=== PATIENT | female | born 1930 | race Caucasian/White ===

== ENCOUNTER 2019-09-18 13:09 | Inpatient (IN) ==
[2019-09-18] MEDS ORDERED: CeFAZolin Syr 2,000MG/20 ML 2,000 MG/20 ML SYRINGE IVPB ONE (13:43)
[2019-09-18] MEDS ORDERED: Albuterol 2.5 MG/3 ML NEBULIZER IH PRN ×2 (13:43→14:06)
[2019-09-18] MEDS ORDERED: Ringers Solution, Lactated 1,000 ML IVC SCH ×2 (13:45→18:25)
[2019-09-18] MEDS ORDERED: *HR* Propofol 200 MG/20 ML VIAL IVP ONE (14:01)
[2019-09-18] MEDS ORDERED: *HR* FentaNYL (PF) 100 MCG/2 ML VIAL ONE ×2 (14:01→16:20)
[2019-09-18] MEDS ORDERED: *HR* Succinylcholine 200 MG/10 ML VIAL IVP ONE (14:02)
[2019-09-18] MEDS ORDERED: Dexamethasone 4 MG/ML VIAL ONE (14:02)
[2019-09-18] MEDS ORDERED: Lidocaine -MPF 2% 2 ML VIAL ONE (14:02)
[2019-09-18] MEDS ORDERED: *HR* Rocuronium Bromide 50 MG/5 ML VIAL ONE (14:02)
[2019-09-18] MEDS ORDERED: Ondansetron 4 MG/2 ML VIAL ONE (14:02)
[2019-09-18] MEDS ORDERED: Acetaminophen IV 1,000 MG/100 ML INFUS..BTL IVPB ONE (14:06)
[2019-09-18] MEDS ORDERED: *HR* OxyCODONE Immed Rel 5 MG TABLET PO PRN ×2 (14:06→18:25)
[2019-09-18] MEDS ORDERED: Lidocaine HCL 4 ML Topical Solution (Laryng-O-Jet Kit Sterile Pak) TP ONE (14:06)
[2019-09-18] MEDS ORDERED: Ondansetron 4 MG/2 ML VIAL IVP ONE (14:06)
[2019-09-18] MEDS ORDERED: Famotidine 20 MG/2 ML VIAL IVP ONE (14:06)
[2019-09-18] MEDS ORDERED: *HR* HYDROmorphone (PF) 1 MG/ML SYRINGE IVP PRN (14:06)
[2019-09-18] MEDS ORDERED: *HR* Promethazine 25 MG/ML VIAL IVP PRN (14:06)
[2019-09-18] MEDS ORDERED: Ethanol\\Acetic Acid\\Na Ace\\Ben 1,000 ML IRRIG.SOLN IR ONE (14:07)
[2019-09-18] MEDS ORDERED: Ropivacaine/PF 0.5% 30 ML VIAL ONE (14:10)
[2019-09-18] MEDS ORDERED: Albumin Human 5% 25.0 GM/500 ML VIAL ONE (14:35)
[2019-09-18] MEDS ORDERED: *HR* Etomidate 40 MG/20 ML VIAL IVP ONE (14:47)
[2019-09-18] MEDS ORDERED: *HR* PHENYLEPHRINE 1,000 MCG/10 ML SYRINGE IVP ONE (16:00)
[2019-09-18] MEDS ORDERED: *HR* Enoxaparin 30 MG/0.3 ML SYRINGE SQ SCH (18:00)
[2019-09-18] MEDS ORDERED: Sennosides 8.6 MG TABLET PO PRN (18:25)
[2019-09-18] MEDS ORDERED: MOM Conc 10 ML UD.LIQ PO PRN (18:25)
[2019-09-18] MEDS ORDERED: Naloxone 0.4 MG/ML INJ IVP PRN (18:25)
[2019-09-18] MEDS ORDERED: Ondansetron 4 MG/2 ML VIAL IVP PRN (18:25)
[2019-09-18] MEDS ORDERED: *HR* OxyCODONE/APAP 5/325 TABLET PO PRN (18:25)
[2019-09-18 20:44] LABS: Hematocrit 37.5 % (35.3-44.9); Hemoglobin 12.5 g/dL (11.5-15.4)
[2019-09-18] MEDS ORDERED: FOLIC ACID PO SCH (21:00)
[2019-09-18] MEDS ORDERED: BIOTIN PO SCH (21:00)
[2019-09-18] MEDS ORDERED: MULTIVITAMIN PO SCH (21:00)
[2019-09-18] MEDS ORDERED: [UNRECOGNIZED DRUG - OTHER] PO SCH (21:00)
[2019-09-18] MEDS: ceFAZolin 2,000 MG in 0.9 % Sodium Chloride 100 ML IVPB SCH (23:06)
[2019-09-19] MEDS ORDERED: *HR* Enoxaparin 30 MG/0.3 ML SYRINGE SQ SCH (06:00)
[2019-09-19] MEDS: ceFAZolin 2,000 MG in 0.9 % Sodium Chloride 100 ML IVPB SCH (06:23)
[2019-09-19] MEDS ORDERED: Cyanocobalamin (B-12) 1,000 MCG TABLET PO SCH (09:00)
[2019-09-19] MEDS ORDERED: Multivit/Ca/Min/Fe/FA 1 TAB TABLET PO SCH (09:00)
[2019-09-19 11:10] VITALS: BP 189/83
[2019-09-19 11:23] LABS: Hematocrit 35.4 % (35.3-44.9); Hemoglobin 11.2 g/dL (11.5-15.4)
[2019-09-19 11:43] LABS: BUN/Creatinine Ratio 19 (6-26); Blood Urea Nitrogen 18 mg/dL (8-23); Carbon Dioxide 25 mEq/L (23-29); Chloride 103 mEq/L (98-107); Glucose 167 mg/dL (70-105); Osmolality,Calculated 286 (280-300); Potassium 4.2 mEq/L (3.5-5.1); Sodium 135 mEq/L (136-145); eGFR For African Americans > 60 (> 60); eGFR For Non-African Americans 57 (> 60)
== END 2019-09-19 16:05 | disposition home health service (06) | DRG 483 ==
LOC: SAMDAY 13:09 → 3NENU 13:09 → SAMDAY 09-19 16:05 → 3NENU 09-28 10:20
PROVIDERS: ADMIT Orthopaedic Surgery; ATTEND Orthopaedic Surgery

== ENCOUNTER 2021-03-02 16:28 | Inpatient (IN) ==
[2021-03-02] MEDS ORDERED: Isovue-370 500 ML BOTTLE IVP ONE (17:29)
[2021-03-02] MEDS ORDERED: 0.9 % Sodium Chloride 1,000 ML IVC ONE (17:29)
[2021-03-02] MEDS ORDERED: Orphenadrine 60 MG/2 ML VIAL IM ONE (17:30)
[2021-03-02] MEDS ORDERED: *HR* Labetalol 20 MG/4 ML SYRINGE IVP ONE ×2 (17:32→20:02)
[2021-03-02 18:07] LABS: Basophils % 0.1 %; Hematocrit 39.4 % (35.3-44.9); Hemoglobin 12.6 g/dL (11.5-15.4); Immature Granulocytes % 0.5 % (0-4); Lymphocytes % 12.4 %; Mean Corpuscular Hemoglobin 28.7 pg (28.0-33.3); Mean Corpuscular Volume 89.7 fL (83.0-100.0); Mean Platelet Volume 10.3 fL (9.4-12.4); Monocytes # 0.6 K/mcL (0.0-1.3); Neutrophils # 6.7 K/mcL (1.6-8.9); Platelet Count 305 K/mcL (140-400); Red Blood Count 4.39 M/mcL (3.82-4.97); White Blood Count 8.4 K/mcL (4.3-11.1)
[2021-03-02 18:23] LABS: Alanine Aminotransferase 10 Units/L (7-52); Albumin 4.5 g/dL (3.5-5.7); Albumin/Globulin Ratio 1.7 (1.1-2.2); Alkaline Phosphatase 81 Units/L (34-104); Aspartate Amino Transferase 9 Units/L (13-39); BUN/Creatinine Ratio 24 (6-26); Bilirubin,Direct 0.1 mg/dL (0.0-0.2); Bilirubin,Indirect 0.3 mg/dL (0.0-1.0); Bilirubin,Total 0.4 mg/dL (0.3-1.0); Blood Urea Nitrogen 17 mg/dL (8-23); Calcium 9.4 mg/dL (8.6-10.3); Carbon Dioxide 27 mEq/L (23-29); Chloride 102 mEq/L (98-107); Globulin 2.6 g/dL (2.4-3.5); Glucose 123 mg/dL (70-105); Osmolality,Calculated 287 (280-300); Potassium 4.2 mEq/L (3.5-5.1); Sodium 137 mEq/L (136-145); Total Protein 7.1 g/dL (6.4-8.9); eGFR For African Americans > 60 (> 60); eGFR For Non-African Americans > 60 (> 60)
[2021-03-03] MEDS ORDERED: *HR* HYDROmorphone 2 MG/ML SYRINGE IVP ONE (00:40)
[2021-03-03] MEDS ORDERED: Naloxone 0.4 MG/ML INJ IVP PRN (01:41)
[2021-03-03] MEDS ORDERED: Ondansetron 4 MG/2 ML VIAL IVP PRN (01:41)
[2021-03-03] MEDS ORDERED: Perflutren Lipid Microsphere 1.3 ML in 0.9 % Sodium Chloride 8.7 ML IVP PRN (01:45)
[2021-03-03] MEDS: niCARdipine 20 MG/200 ML MLS IVC SCH ×6 (03:08→21:51)
[2021-03-03 05:58] LABS: Basophils % 0.2 %; Eosinophils % 0.1 %; Hematocrit 38.1 % (35.3-44.9); Hemoglobin 12.5 g/dL (11.5-15.4); Immature Granulocytes % 0.5 % (0-4); Lymphocytes # 1.7 K/mcL (0.6-4.6); Lymphocytes % 20.1 %; Mean Corpuscular HGB Conc 32.8 g/dL (31.6-35.5); Mean Corpuscular Hemoglobin 29.1 pg (28.0-33.3); Mean Corpuscular Volume 88.6 fL (83.0-100.0); Mean Platelet Volume 10.2 fL (9.4-12.4); Monocytes % 11.3 %; Neutrophils # 5.9 K/mcL (1.6-8.9); Platelet Count 285 K/mcL (140-400); Red Cell Distribution Width 15.2 % (11.5-14.5); Segmented Neutrophils % 67.8 %; White Blood Count 8.7 K/mcL (4.3-11.1)
[2021-03-03 06:04] LABS: INR 1.1; Prothrombin Time 13.1 Seconds (9.4-12.1)
[2021-03-03 06:19] LABS: BUN/Creatinine Ratio 21 (6-26); Blood Urea Nitrogen 15 mg/dL (8-23); Calcium 9.1 mg/dL (8.6-10.3); Carbon Dioxide 26 mEq/L (23-29); Chloride 102 mEq/L (98-107); Glucose 130 mg/dL (70-105); Magnesium 2.2 mg/dL (1.6-2.6); Osmolality,Calculated 293 (280-300); Potassium 3.2 mEq/L (3.5-5.1); Sodium 140 mEq/L (136-145); Troponin I < 0.03 ng/mL (< 0.04); eGFR For African Americans > 60 (> 60); eGFR For Non-African Americans > 60 (> 60)
[2021-03-03 06:32] LABS: Thyroid Stimulating Hormone 7.299 mcIU/mL (0.340-5.600)
[2021-03-03] MEDS: *HR* Enoxaparin 40 MG/0.4 ML SYRINGE SQ SCH (08:26)
[2021-03-03] MEDS: Acetaminophen 325 MG TABLET PO PRN ×2 (08:36→23:29)
[2021-03-03 08:44] LABS: Triiodothyronine (T3) Free 2.83 pg/mL (2.50-3.90)
[2021-03-03] MEDS: amLODIPine 5 MG TABLET PO SCH (10:57)
[2021-03-03 11:04] LABS: Bilirubin,Urine Negative (Negative); Blood,Urine Negative (Negative); Clarity,Urine Clear (Clear); Color,Urine Colorless (Yellow); Glucose,Urine (UA) Normal (Normal); Ketones,Urine Negative (Negative); Leukocyte Esterase,Urine Negative (Negative); Nitrite,Urine Negative (Negative); PH,Urine 6.5 pH Units (5.0-8.0); Protein,Urine Negative (Neg-Trace); Specific Gravity,Urine 1.017 (1.010-1.025); Urobilinogen,Urine Normal (Normal)
[2021-03-03] MEDS ORDERED: *HR* HYDROcodone/Acet 5/325 mg TABLET PO ONE (11:10)
[2021-03-03] MEDS ORDERED: Morphine Sulfate 2 MG/ML SYRINGE IVP ONE (14:36)
[2021-03-03] MEDS: Multivit/Ca/Min/Fe/FA 1 TAB TABLET PO SCH (20:52)
[2021-03-04] MEDS: niCARdipine 20 MG/200 ML MLS IVC SCH (03:10)
[2021-03-04] MEDS: Acetaminophen 325 MG TABLET PO PRN ×2 (05:43→16:27)
[2021-03-04 07:50] LABS: Basophils # 0.1 K/mcL (0.0-0.2); Basophils % 0.7 %; Eosinophils # 0.2 K/mcL (0.0-0.6); Eosinophils % 3.3 %; Hemoglobin 12.8 g/dL (11.5-15.4); Immature Granulocytes % 0.3 % (0-4); Lymphocytes # 1.3 K/mcL (0.6-4.6); Lymphocytes % 19.5 %; Mean Corpuscular HGB Conc 32.8 g/dL (31.6-35.5); Mean Corpuscular Volume 88.4 fL (83.0-100.0); Mean Platelet Volume 9.8 fL (9.4-12.4); Monocytes # 0.8 K/mcL (0.0-1.3); Monocytes % 11.4 %; Neutrophils # 4.5 K/mcL (1.6-8.9); Platelet Count 281 K/mcL (140-400); Red Blood Count 4.41 M/mcL (3.82-4.97); Segmented Neutrophils % 64.8 %; White Blood Count 6.9 K/mcL (4.3-11.1)
[2021-03-04 08:26] LABS: BUN/Creatinine Ratio 20 (6-26); Blood Urea Nitrogen 12 mg/dL (8-23); Calcium 9.4 mg/dL (8.6-10.3); Carbon Dioxide 25 mEq/L (23-29); Chloride 100 mEq/L (98-107); Glucose 123 mg/dL (70-105); Osmolality,Calculated 283 (280-300); Potassium 3.2 mEq/L (3.5-5.1); Sodium 136 mEq/L (136-145); eGFR For African Americans > 60 (> 60); eGFR For Non-African Americans > 60 (> 60)
[2021-03-04] MEDS: *HR* Enoxaparin 40 MG/0.4 ML SYRINGE SQ SCH (08:37)
[2021-03-04] MEDS: Multivit/Ca/Min/Fe/FA 1 TAB TABLET PO SCH (08:38)
[2021-03-04] MEDS: Cyanocobalamin (B-12) 1,000 MCG TABLET PO SCH (08:38)
[2021-03-04] MEDS: Cholecalciferol (D-3) 1,000 UNIT (25MCG) TABLET PO SCH (08:38)
[2021-03-04] MEDS: amLODIPine 5 MG TABLET PO SCH (08:39)
[2021-03-04] MEDS ORDERED: amLODIPine 5 MG TABLET PO STA (08:48)
[2021-03-05] MEDS: Acetaminophen 325 MG TABLET PO PRN (01:03)
[2021-03-05 01:42] LABS: BUN/Creatinine Ratio 22 (6-26); Blood Urea Nitrogen 15 mg/dL (8-23); Calcium 9.9 mg/dL (8.6-10.3); Carbon Dioxide 28 mEq/L (23-29); Chloride 100 mEq/L (98-107); Glucose 129 mg/dL (70-105); Osmolality,Calculated 285 (280-300); Potassium 4.2 mEq/L (3.5-5.1); Sodium 136 mEq/L (136-145); eGFR For African Americans > 60 (> 60); eGFR For Non-African Americans > 60 (> 60)
[2021-03-05 03:30] VITALS: O2SAT 94
[2021-03-05] MEDS: Multivit/Ca/Min/Fe/FA 1 TAB TABLET PO SCH (07:29)
[2021-03-05] MEDS: Cyanocobalamin (B-12) 1,000 MCG TABLET PO SCH (07:29)
[2021-03-05] MEDS: Cholecalciferol (D-3) 1,000 UNIT (25MCG) TABLET PO SCH (07:29)
[2021-03-05] MEDS: *HR* Enoxaparin 40 MG/0.4 ML SYRINGE SQ SCH (07:30)
[2021-03-05] MEDS ORDERED: amLODIPine 5 MG TABLET PO SCH (09:00)
[2021-03-05] MEDS ORDERED: lisinopriL 20 MG TABLET PO SCH (09:00)
[2021-03-05 10:56] VITALS: BP 121/68; PULSE 49; TEMP 98
== END 2021-03-05 13:15 | disposition home or self-care (01) | DRG 305 ==
LOC: EMEROOARM 16:28 → 2NNU 16:28 → SUATTDRO 03-03 01:39 → 2NNU 03-03 03:49
PROVIDERS: ADMIT Student in an Organized Health Care Education/Training Program; ATTEND Family Medicine